=== PATIENT | male | born 1975 | race Caucasian/White ===

== ENCOUNTER 2023-08-02 02:14 | Emergency (ER) | payer OTHER, SELFPAY ==
[2023-08-02 02:21] VITALS: BP 134/88; PULSE 88; RESP 18; TEMP 37.2; O2SAT 99
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
[2023-08-02 05:21] VITALS: BP 125/72; PULSE 86; RESP 17; O2SAT 99
== END 2023-08-02 05:22 | disposition home or self-care (01) ==
PROVIDERS: Emergency Provider Emergency Medicine
DX: S80.212A Abrasion, left knee, initial encounter (principal); V18.4XXA Pedal cycle driver injured in noncollision transport accident in traffic accident, initial encounter; Y93.55 Activity, bike riding
CPT/HCPCS: 11042; 99282; A9270